=== PATIENT | male | born 1980 | race Two or more races ===

== ENCOUNTER 2021-04-21 08:11 | Day surgery (SDC) | payer BC ==
[~2021-04-21 08:11] MED LIST: Acetaminophen 325 MG Tab PO SCH; Lactated Ringers 1,000 ML IV SCH; Lidocaine 1% 4 ML ONE; Lidocaine 1%/Sod Bicarbonate in NS 8.4% 1 ML Syringe IDERM PRN; Midazolam 1 MG/ML 2 ML SDV ONE; Pregabalin 25 MG Cap PO SCH; Propofol 200 MG/20 ML SDV ONE; Sodium Chloride 0.9% 10 ML Syringe FLUSH PRN; ceFAZolin 1 GM Vial ONE; fentaNYL 100 MCG/2 ML SDV ONE; oxyCODONE ER 10 MG TAB.ER PO SCH
[2021-04-21] MEDS ORDERED: Ropivacaine 0.5% 5 MG/ML 30 ML SDV ONE (08:22)
[2021-04-21] MEDS ORDERED: EPINEPHrine 1 MG/ML SDV ONE (08:22)
--- NOTE | 2021-04-21 08:27 | PCM.PREANE ---
Preanesthetic Assessment - Anesthesia/Transfusion/Family Hx Anesthesia History: Prior Anesthesia Without Reaction Family History of Anesthesia Reaction: No Transfusion History: No Prior Transfusion(s) Intubation History: Unknown - Review of Systems General: No Symptoms Pulmonary: No Symptoms Cardiovascular: No Symptoms Gastrointestinal: No Symptoms Neurological: No Symptoms Other: Reports: None - Physical Assessment NPO Status Date: 04/20/21 NPO Status Time: 23:30 ASA Class: 3 Mental Status: Alert & Oriented x3 Airway Class: Mallampati = 3 Dentition: Reports: Normal Dentition Thyro-Mental Finger Breadths: 3 Mouth Opening Finger Breadths: 3 ROM/Head Extension: Full Lungs: Clear to Auscultation, Normal Respiratory Effort Cardiovascular: Regular Rate, Regular Rhythm - Allergies Allergies/Adverse Reactions: Allergies Allergy/AdvReac Type Severity Reaction Status Date / Time iodine Allergy Hives Verified 04/18/21 12:14 - Acknowledgements Anesthesia Type Planned: Spinal, Regional Block Pt an Appropriate Candidate for the Planned Anesthesia: Yes Alternatives and Risks of Anesthesia Discussed w Pt/Guardian: Yes Pt/Guardian Understands and Agrees with Anesthesia Plan: Yes PreAnesthesia Questionnaire Cardiovascular History: Reports: Hypertension, SOB on Exertion Respiratory History: Reports: Bronchitis, Recurrent Gastrointestinal History: Reports: GERD Genitourinary History: Reports: None Musculoskeletal History: Reports: Osteoarthritis Neurological History: Reports: None Psychiatric History: Reports: Anxiety, Depression Endocrine/Metabolic History: Reports: Obesity/BMI 30+ - Past Surgical History HEENT Surgical History: Reports: Other (See Below) Other HEENT Surgeries/Procedures: wisdom teeth removed Musculoskeletal Surgical History: Reports: Arthroscopic Knee - SUBSTANCE USE Tobacco Use Status *Q: Former Tobacco User Tobacco Use Within Last Twelve Months: Smokeless Tobacco Recreational Drug Use History: No - HOME MEDS Home Medications: Home Meds Albuterol [Proventil Neb Soln] 2.5 mg INH ASDIRECTED PRN 04/18/21 [History] Chlorthalidone 1 tab PO DAILY 04/18/21 [History] FLUoxetine HCl [Prozac] 3 cap PO DAILY 04/18/21 [History] busPIRone [Buspar] 15 mg PO DAILY 04/18/21 [History] Aspirin [Aspirin EC] 325 mg PO BID #60 tab 04/21/21 [Rx] Cyclobenzaprine [Flexeril] 10 mg PO BID PRN #20 tab 04/21/21 [Rx] oxyCODONE 5 - 10 mg PO Q4H PRN #40 tab 04/21/21 [Rx] - CURRENT (IN HOUSE) MEDS Current Meds: Current Medications Acetaminophen (Acetaminophen 325 Mg Tab) 975 mg PO ONETIME ELVIRA Stop: 04/21/21 16:00 Morphine Sulfate 8 mg/Epinephrine HCl 0.3 mg/Cefuroxime Sodium 750 mg/Ketorolac Tromethamine 30 mg/Sodium Chloride 7.9 ml 0 mg .XX ASDIRECTED PRN PRN Reason: SCIP Stop: 04/21/21 23:00 Lactated Ringer's (Ringers, Lactated) 1,000 mls @ 125 mls/hr IV ASDIRECTED ELVIRA Stop: 04/21/21 23:00 Lidocaine/Sodium Bicarbonate (Lidocaine 1%/Sod Bicarbonate In Ns 8.4% 1 Ml Syringe) 0.25 ml IDERM ONETIME PRN PRN Reason: Prior to IV Start Stop: 04/21/21 18:00 Oxycodone HCl (Oxycodone Er 10 Mg Tab.Er) 10 mg PO ONETIME ELVIRA Stop: 04/21/21 16:00 Pregabalin (Pregabalin 25 Mg Cap) 50 mg PO ONETIME ELVIRA Stop: 04/21/21 16:00 Sodium Chloride (Sodium Chloride 0.9% 10 Ml Syringe) 10 ml FLUSH ASDIRECTED PRN PRN Reason: Keep Vein Open Stop: 04/21/21 18:00 Vancomycin HCl (Pharmacy To Dose - Vancomycin) 1 dose .XX ONETIME ONE Stop: 04/21/21 09:01 Discontinued Medications Cefazolin Sodium (Cefazolin 1 Gm Vial) Confirm Administered Dose 2 gm .ROUTE .STK-MED ONE Stop: 04/21/21 07:25 Fentanyl (Fentanyl 100 Mcg/2 Ml Sdv) Confirm Administered Dose 100 mcg .ROUTE .STK-MED ONE Stop: 04/21/21 07:25 Lidocaine HCl (Xylocaine-Mpf 1%) Confirm Administered Dose 4 mls @ as directed .ROUTE .STK-MED ONE Stop: 04/21/21 07:25 Midazolam HCl (Midazolam 1 Mg/Ml 2 Ml Sdv) Confirm Administered Dose 2 mg .ROUTE .STK-MED ONE Stop: 04/21/21 07:25 Propofol (Propofol 200 Mg/20 Ml Sdv) Confirm Administered Dose 200 mg .ROUTE .STK-MED ONE Stop: 04/21/21 07:25 Tranexamic Acid (Tranexamic Acid 1,000 Mg/10 Ml Amp) Confirm Administered Dose 1,000 mg .ROUTE .STK-MED ONE Stop: 04/21/21 07:30 Vancomycin HCl (Vancomycin 1 Gm Sdv) Confirm Administered Dose 1 gm .ROUTE .STK- MED ONE Stop: 04/21/21 07:30
[2021-04-21] MEDS ORDERED: ePHEDrine 50 MG/ML SDV ONE (09:05)
[2021-04-21] MEDS ORDERED: ceFAZolin 1 GM Vial ONE (09:10)
[2021-04-21] MEDS ORDERED: Lactated Ringers 1,000 ML ONE ×2 (09:11→11:08)
[2021-04-21] MEDS ORDERED: Propofol 200 MG/20 ML SDV ONE ×4 (09:17→10:26)
[2021-04-21] MEDS ORDERED: Vancomycin 2 GM in Sodium Chloride 0.9% 500 ML IV ONE (09:30)
[2021-04-21] MEDS ORDERED: Midazolam 1 MG/ML 2 ML SDV ONE (09:36)
[2021-04-21] MEDS ORDERED: diphenhydrAMINE 50 MG/ML SDV IVPUSH PRN (10:00)
[2021-04-21] MEDS ORDERED: fentaNYL 100 MCG/2 ML SDV IVPUSH PRN (10:00)
[2021-04-21] MEDS ORDERED: Ondansetron 4 MG/2 ML SDV IVPUSH PRN (10:00)
[2021-04-21] MEDS ORDERED: Ondansetron 4 MG/2 ML SDV ONE (10:03)
[2021-04-21] MEDS ORDERED: Ketorolac 30 MG/ML SDV ONE (10:03)
[2021-04-21] MEDS: Morphine 8 MG, EPINEPHrine 0.3 MG, Cefuroxime 750 MG, Ketorolac 30 MG, Sodium Chloride ... PRN ×10 (10:11→10:21)
[2021-04-21] MEDS: Vancomycin 1 GM SDV ONE ×2 (10:12→10:29)
--- NOTE | 2021-04-21 11:05 | PCM.POSTAN ---
POST ANESTHESIA ASSESSMENT - MENTAL STATUS Mental Status: Alert, Oriented - VITAL SIGNS Vital Signs: Last Vital Signs Temp 36.9 C 04/21/21 08:15 Pulse 78 04/21/21 08:15 Resp 20 04/21/21 08:15 BP 139/75 04/21/21 08:15 Pulse Ox 96 04/21/21 08:15 - RESPIRATORY Respiratory Status: Respiratory Rate WNL, Airway Patent, O2 Saturation Stable - CARDIOVASCULAR CV Status: Pulse Rate WNL, Blood Pressure Stable - GASTROINTESTINAL GI Status: No Symptoms - PAIN Pain Score: 0 - POST OP HYDRATION Hydration Status: Adequate & Stable
--- NOTE | 2021-04-21 11:40 | PCM.SN.2 ---
- Free Text/Narrative Note: Left selective femoral nerve block at the adductor canal for post-procedure pain control under US guidance requested by Dr. Bear. Time Out: 1124 Start: 1124 End: 1131 Chart reviewed. Consent signed. Questions answered. Appropriate monitors applied. Time out performed. Left mid-shaft femur identified with ultrasound (six inch depth), scanning medially of femur, the femoral artery in the adductor canal visualized, and the femoral nerve located laterally to the artery. The skin was prepped lateral to the ultrasound probe with chlorahexadine times three. The 21ga 4 insulated block needle was inserted under direct ultrasound guidance into the adductor canal. 30mL of 0.5% ropivacaine with 1:200,000 epinephrine was injected circumferentially around the nerve with intermittent negative aspiration noted. Patient tolerated the procedure well. Sterile technique noted along with sterile gloves, mask, and sterile probe cover. See picture on progress note and vital signs on nurses notes. Block completed in PACU. Bakari Neil CRNA
--- NOTE | 2021-04-21 12:21 | CR ---
Left knee: AP and lateral views of the left knee were obtained. Comparison: Prior CT left knee exam of 03/18/21 and prior left knee radiographic study of 02/14/13. Knee prosthesis and patellar prosthesis are seen. Components are aligned. Other surgical material are seen which are pre-existing. Underlying bony structure shows nothing acute. Soft tissue air is seen. Impression: 1. Satisfactory postop radiographic appearance of recently placed left knee prostheses. Diagnostic code #2
--- NOTE | 2021-04-21 12:49 | PCM48HPAN ---
Post Anesthesia Note - EVALUATION WITHIN 48HRS OF ANESTHETIC Vital Signs in Normal Range: Yes Patient Participated in Evaluation: Yes Respiratory Function Stable: Yes Airway Patent: Yes Cardiovascular Function Stable: Yes Hydration Status Stable: Yes Pain Control Satisfactory: Yes Nausea and Vomiting Control Satisfactory: Yes Mental Status Recovered: Yes Vital Signs: Last Vital Signs Temp 36.1 C 04/21/21 11:10 Pulse 72 04/21/21 11:10 Resp 20 04/21/21 11:10 BP 117/67 04/21/21 11:10 Pulse Ox 92 L 04/21/21 11:10
[2021-04-21] MEDS ORDERED: oxyCODONE 5 MG Tab PO ONE (13:13)
--- NOTE | 2021-04-28 17:18 | PCM.OPNOTE ---
- General Post-Op/Procedure Note Date of Surgery/Procedure: 04/21/21 Operative Procedure(s): left total knee arthroplasty with terrell heriberto robotic assist Pre Op Diagnosis: left knee osteoarthrosis Post-Op Diagnosis: Same Anesthesia Technique: Local, MAC, Spinal Primary Surgeon: Jann Bear Anesthesia Provider: Lisa Knight Enrollment Management Coordinator: Gill Moore Enrollment Management Coordinator: Rebekah Armenta EBL in mLs: 150 Complications: None Condition: Good Free Text/Narrative:: 6 femur 5 tibia 9mm 35x10
--- NOTE | 2021-04-30 10:09 | OR ---
DATE OF OPERATION: 04/21/2021 SURGEON: Jann Bear MD OPERATION PERFORMED: Left total knee arthroplasty with [employer] Robotic assist. PREOPERATIVE DIAGNOSIS: Left knee osteoarthrosis. POSTOPERATIVE DIAGNOSIS: Left knee osteoarthrosis. ANESTHESIA: Local MAC with spinal. ANESTHESIA PROVIDER: Gill Moore PA-C and Rebekah Armenta LPN. ESTIMATED BLOOD LOSS: 150 mL. COMPLICATIONS: None. CONDITION: Stable. IMPLANTS: 1. Stanford size 6 press-fit CR femur. 2. Lucien size 5 press-fit tibial baseplate. 3. Lucien size 5, 9 mm CS polyethylene insert. 4. Lucien size 35 x 10 mm press-fit asymmetric patella. DESCRIPTION OF PROCEDURE: The patient was identified in the preoperative holding area. Proper site was marked and identified by the surgeon. The patient was taken back to operating theater, where after adequate anesthesia, the patient had a nonsterile tourniquet applied to the left lower extremity. The left lower extremity was then sterilely prepped and draped in the usual sterile fashion. OR time-out was performed. The patient received 2 g IV Ancef. Leg serrano was then applied to the left lower extremity. Left lower extremity was exsanguinated. Tourniquet was insufflated to 250 mmHg. At this time, a standard anterior incision was made. Medial parapatellar arthrotomy was created. Deep fibers of the MCL were raised and anterior fat pad was resected. Attention was turned to the patella. Patella measured a 24 and was resected to a 14 for a 35 x 10 mm patella. Drill holes were drilled and found to have adequate bone stock. At this time, two 4.0 Schanz pins were placed intra-incisionally on the femur for the Stanford Arben robotic array. 2 more were placed 3 fingerbreadths distal to the tibial tubercle. Edge of the femoral and tibial checkpoints were applied. Hip center rotation was obtained and a lateral malleoli were marked as well as the checkpoints on the femur and the tibia. At this time, Lucien 40 points were obtained off the tibia and the femur for the Lucien Arben robotic plan for this patient. The patient was noted to have a roughly 45-degree flexion contracture. Varus and valgus stresses were applied in full extension as well as 90 degrees of flexion. The Lucien Arben robotic plan was then undertaken with a few degrees of varus and external rotation to allow for 19 mm gaps. Saw blade was then brought in. The tibia resection, anterior and femoral resection, anterior chamfer cut, as well as posterior femoral cut was then completed. A saw blade was then switched, bony fragments were removed, and the distal femoral cut and posterior chamfer cut were completed. We did not run into any of the hardware on this patient at this time, so there was no need for hardware removal. At this time, all bony fragments were removed. The medial and lateral meniscus were resected. Posterior osteophytes were removed. The size 5 trial tibia was placed, size 6 trial femur was placed, and a 9 mm trial spacer was placed. The patient had full extension, full flexion. No varus and valgus instability noted. At this time, the femoral drill holes were drilled. Tibia stamped and drilled in proper rotation. The size 5 press-fit tibia was then impacted in place, size 6 femur was impacted in place, and a 9 mm CS polyethylene insert was impacted in place and the patient's knee was brought to full extension. 35 x 10 mm patella was then press-fit into place. Tourniquet was deflated. Bleeders were cauterized. 1 L of pulse lavage irrigation with Ancef was irrigated through the knee along with 400 mL IrriSept irrigation. Topical tranexamic acid and vancomycin powder were applied. Periarticular injection was completed. At this time, a #2 barbed suture was used for closure of the medial parapatellar arthrotomy, 2-0 Vicryl was used subcutaneously, as well as Stratafix and Prineo were used for skin closure. The patient tolerated the procedure well, was sent to PACU in stable condition. Please note, all Liquid5 robotic checkpoints and arrays were removed before closure. MMODAL /[id number]
== END 2021-04-21 14:40 | disposition home or self-care (01) ==
LOC: JD.SDS 08:11
PROVIDERS: ATTEND Orthopaedic Surgery
DX: T84.84XA Pain due to internal orthopedic prosthetic devices, implants and grafts, initial encounter (principal); M17.12 Unilateral primary osteoarthritis, left knee; M25.762 Osteophyte, left knee; I10 Essential (primary) hypertension; Z88.8 Allergy status to other drugs, medicaments and biological substances
CPT/HCPCS: 27447; 73560; 97116; 97161; A9270; C1713; C1776; J0171; J0690; J0697; J1885; J2250; J2270; J2405; J2704; J2795; J3010; J3370; J7120; 01402; 64450; 76942

== ENCOUNTER 2025-08-13 14:56 | Emergency (ER) | payer BC ==
[2025-08-13 15:39] LABS: BASOPHILS ABSOLUTE AUTO 0.0 K/mm3 (0.0-0.2); BASOPHILS PERCENT AUTO 0.2 % (0.0-1.0); EOSINOPHILS ABSOLUTE AUTO 0.0 K/mm3 (0.0-0.4); EOSINOPHILS PERCENT AUTO 0.0 % (0.0-6.0); IMMATURE GRAN ABSOLUTE AUTO 0.09 K/mm3 (0.00-0.05); IMMATURE GRAN PERCENT AUTO 0.4 % (0.0-0.4); LYMPHOCYTES ABSOLUTE AUTO 1.6 K/mm3 (1.0-4.8); LYMPHOCYTES PERCENT AUTO 7.5 % (24.0-44.0); MEAN PLATELET VOLUME 10.5 fl (9.4-12.4); MONOCYTES ABSOLUTE AUTO 1.2 K/mm3 (0.0-0.8); MONOCYTES PERCENT AUTO 5.9 % (0.0-8.0); NEUTROPHILS ABSOLUTE AUTO 18.1 K/mm3 (1.8-7.7); NEUTROPHILS PERCENT AUTO 86.0 % (41.0-71.0); NRBC ABSOLUTE 0.00 (0.00-0.02); NRBC PERCENT 0.0 % (0.0-0.2); PLATELET COUNT,PLT 365 K/mm3 (150-400); RED BLOOD CELL COUNT 6.20 M/mm3 (4.52-5.90); WHITE BLOOD CELL COUNT,WBC 21.03 K/mm3 (3.9-11.3)
[2025-08-13 15:59] LABS: A/G RATIO 0.9 (1-2); ALANINE AMINOTRANSFERASE,ALT 37 U/L (16-63); ASPARTATE AMNIOTRANSFERASE,AST 18 U/L (15-37); BILIRUBIN TOTAL 0.4 mg/dL (0.2-1.0); BLOOD UREA NITROGEN,BUN 19 mg/dL (7-18); CARBON DIOXIDE,CO2 30 mEq/L (21-32); CHLORIDE,CL 103 mEq/L (98-107); CREATINE KINASE,CK 117 U/L (39-308); CREATININE 1.3 mg/dL (0.7-1.3); ESTIMATED GFR 70 mL/min (>60); GLUCOSE RANDOM 168 mg/dL (70-99); POTASSIUM,K 3.4 mEq/L (3.5-5.1); PROTEIN TOTAL,TP 8.0 g/dl (6.4-8.2); SODIUM,NA 144 mEq/L (136-145)
[2025-08-13 16:00] LABS: TROPONIN I HIGH SENSITIVITY < 4 pg/mL (<=76)
[2025-08-13] MEDS: diphenhydrAMINE 50 MG/ML SDV IVPUSH ONE (16:18)
[2025-08-13] MEDS: methylPREDNISolone Sodium Succinate 125 MG/2 ML SDV IVPUSH ONE (16:18)
[2025-08-13] MEDS ORDERED: Sodium Chloride 0.9% 10 ML Syringe FLUSH PRN (16:29)
[2025-08-13] MEDS: Iopamidol 755 Mg/ML 100 ML Bottle IVPUSH ONE (16:51)
[2025-08-13] MEDS: Potassium Chloride 20 MEQ Tab.ER PO ONE (16:53)
== END 2025-08-13 17:59 | disposition home or self-care (01) ==
LOC: JD.ED 14:56
DX: I10 Essential (primary) hypertension (principal); R05.9 Cough, unspecified; N62 Hypertrophy of breast; D72.829 Elevated white blood cell count, unspecified; K21.9 Gastro-esophageal reflux disease without esophagitis; Z88.0 Allergy status to penicillin; Z91.030 Bee allergy status; Z91.041 Radiographic dye allergy status; Z79.899 Other long term (current) drug therapy
CPT/HCPCS: 36415; 71275; 80053; 82550; 83690; 83735; 83880; 84484; 85025; 93005; 96374; 96375; 99284; A9270; J1200; J1308; J2919; Q9967; 93010

== ENCOUNTER 2025-09-26 06:58 | Day surgery (SDC) | payer BC ==
[~2025-09-26 06:58] MED LIST changes: -Acetaminophen 325 MG Tab PO SCH; -Lactated Ringers 1,000 ML IV SCH; -Lidocaine 1% 4 ML ONE; -Lidocaine 1%/Sod Bicarbonate in NS 8.4% 1 ML Syringe IDERM PRN; -Midazolam 1 MG/ML 2 ML SDV ONE; -Pregabalin 25 MG Cap PO SCH; -Propofol 200 MG/20 ML SDV ONE; +Sodium Chloride 0.9% 10 ML Syringe FLUSH SCH; -ceFAZolin 1 GM Vial ONE; -fentaNYL 100 MCG/2 ML SDV ONE; -oxyCODONE ER 10 MG TAB.ER PO SCH; +propofoL 500 MG/50 ML 50 ML ONE
[2025-09-26] MEDS: Lactated Ringers 1,000 ML IV SCH (07:20)
[2025-09-26] MEDS ORDERED: Propofol 200 MG/20 ML SDV ONE (07:45)
== END 2025-09-26 08:45 | disposition home or self-care (01) ==
LOC: JD.SDS 06:58
PROVIDERS: ATTEND Surgery
DX: Z12.11 Encounter for screening for malignant neoplasm of colon (principal); K21.00 Gastro-esophageal reflux disease with esophagitis, without bleeding; K31.7 Polyp of stomach and duodenum; K44.9 Diaphragmatic hernia without obstruction or gangrene; I10 Essential (primary) hypertension; E66.9 Obesity, unspecified; Z80.0 Family history of malignant neoplasm of digestive organs; Z88.8 Allergy status to other drugs, medicaments and biological substances; Z68.43 Body mass index [BMI] 50.0-59.9, adult; Z91.041 Radiographic dye allergy status; Z87.891 Personal history of nicotine dependence; Z91.030 Bee allergy status; Z79.899 Other long term (current) drug therapy
CPT/HCPCS: 43239; 43251; 45378; C9777; J2003; J2704; J7120; 00731